=== PATIENT | male | born 1985 | race African-American/Black ===

== ENCOUNTER 2021-02-18 13:05 | Emergency (ER) | payer SELFPAY | END 2021-02-18 14:15 | disposition home or self-care (01) | LOC: ERS 13:05 | DX: M25.531 Pain in right wrist (principal); M25.532 Pain in left wrist; F17.210 Nicotine dependence, cigarettes, uncomplicated; J44.9 Chronic obstructive pulmonary disease, unspecified | CPT/HCPCS: 99283 ==

== ENCOUNTER 2022-03-21 22:26 | Emergency (ER) | payer SELFPAY | END 2022-03-22 01:16 | disposition left against medical advice (07) | LOC: ERS 22:26 | DX: Z53.21 Procedure and treatment not carried out due to patient leaving prior to being seen by health care provider (principal) ==